=== PATIENT | female | born 1990 | race Two or more races ===

== ENCOUNTER 2024-08-22 11:11 | Emergency (ER) | payer MEDICAID ==
[~2024-08-22] VITALS: Ht 160 cm; Wt 45.5 kg
[2024-08-22 12:55] LABS: Urine Bacteria FEW /hpf (None Seen); Urine Blood 3+ /uL (Negative); Urine Clarity Clear (Clear); Urine Color Yellow (Yellow); Urine Mucus FEW (None Seen); Urine Protein, UAD Negative (Negative); Urine Specific Gravity 1.028 (1.001-1.035); Urine Squamous Epithelial Cell FEW /hpf (<5); Urine Urobilinogen Normal (Negative); Urine WBC 10 /HPF (0-5)
--- NOTE | 2024-08-22 13:30 | DVH ---
INDICATION: vaginalbleeding TECHNIQUE: Multiple real-time grayscale transabdominal and tv sonographic images along with color and duplex Doppler of the uterus and ovaries were obtained. COMPARISON: None FINDINGS: The uterus measures 13 x 7x7cm cm. 2cm fribroid. The right ovary measures 3 x 1 x 3 cm. The left ovary measures 3 x 2 x 4 cm. Subsequent color and duplex Doppler interrogation of the ovaries demonstrated symmetric vascular flow to both ovaries, though this does not exclude the possibility of torsion due to the dual blood suppl y. IMPRESSION: 1. 2cm fibroid. No pole or yolk sac seen. 2. retroverted uterus with irregular shaped GS with internal debris.
[2024-08-22] MEDS ORDERED: CEPH250C PO (13:42)
--- NOTE | 2024-08-22 13:43 | ED.PDOC ---
History of Present Illness HPI Comments 33-year-old female came to the ER stating that she is approximately eight weeks started to have spotting this morning. Along with spotting she has been having cramping. This is a 3rd . Other two pregnancies were normal delivery. She is comfortable. Vitals signs stable. Denies any other symptoms. Chief Complaint: Vaginal Bleed Time Seen by MD: 11:12 Primary Care Provider: UNKNOWN Reviewed Notes: Nurses Notes, Medications, Allergies Allergies: Coded Allergies: NO KNOWN ALLERGIES (Unverified , 08/22/24) Information Source: Patient Mode of Arrival: Ambulatory Severity: Moderate Timing: Hours Duration: Since onset Past Medical History PAST MEDICAL HISTORY: Denies Surgical History: Denies all surgeries UROGYNECOLOGY PHYSICIAN History: No Pertinent UROGYNECOLOGY PHYSICIAN History Social History Smoker: Non-Smoker Alcohol: Denies ETOH Use Drugs: Denies Drug Use Constitutional: denies: chills, diaphoresis, fatigue, fever, malaise, sweats, weakness, others EENTM: denies: blurred vision, double vision, ear bleeding, ear discharge, ear drainage, ear pain, ear ringing, eye pain, eye redness, hearing loss, mouth pain, mouth swelling, nasal discharge, nose bleeding, nose congestion, nose pain, photophobia, tearing, throat pain, throat swelling, voice changes, others Respiratory: denies: cough, hemoptysis, orthopnea, SOB at rest, shortness of breath, SOB with excertion, stridor, wheezing, others Cardiovascular: denies: chest pain, dizzy spells, diaphoresis, Dyspnea on exertion, edema, irregular heart beat, left arm pain, lightheadedness, palpitations, PND, syncope, others Gastrointestinal: denies: abdomen distended, abdominal pain, blood streaked bowels, constipated, diarrhea, dysphagia, difficulty swallowing, hematemesis, melena, nausea, poor appetite, poor fluid intake, rectal bleeding, rectal pain, vomiting, others Genitourinary: reports: abnormal vagina bleeding; denies: burning, dyspareunia, dysuria, flank pain, frequency, hematuria, incontinence, pain, , vagina discharge, urgency, others Neurological: denies: dizziness, fainting, headache, left sided numbness, left sided weakness, numbness, paresthesia, pre-existing deficit, right sided numbness, right sided weakness, seizure, speech problems, tingling, tremors, weakness, others Musculoskeletal: denies: back pain, gout, joint pain, joint swelling, muscle pain, muscle stiffness, neck pain, others Integumetry: denies: bruises, change in color, change in hair/nails, dryness, laceration, lesions, lumps, rash, wounds, others Allergic/Immunocompromised: denies: Difficulty Healing, Frequent Infections, Hives, Itching, others Hematologic/Lymphatic: denies: anemia, blood clots, easy bleeding, easy bruising, swollen glands, others Endocrine: denies: excessive hunger, excessive sweating, excessive thirst, excessive urination, flushing, intolerance to cold, intolerance to heat, unexplained weight gain, unexplained weight loss, others Psychiatric: denies: anxiety, bipolar disorder, depression, hopeless, panic disorder, schizophrenia, sleepless, suicidal, others Physical Exam General Appearance: Moderate Distress HEENT: Normal ENT Inspection, Pharynx Normal, TMs Normal Neck: Full Range of Motion, Non-Tender, Normal, Normal Inspection Respiratory: Chest Non-Tender, Lungs Clear, No Accessory Muscle Use, No Respiratory Distress, Normal Breath Sounds Cardiovascular: No Edema, No JVD, No Murmur, No Gallop, Normal Peripheral Pulses, Regular Rate/Rhythm Breast Exam: Deferred Gastrointestinal: No Organomegaly, Non Tender, No Pulsatile Mass, Normal Bowel Sounds, Soft Genitalia: Deferred Pelvic: Deferred Rectal: Deferred Extremities: No calf tenderness, Normal capillary refill, Normal inspection, Normal range of motion, Non-tender, No pedal edema Musculoskeletal : Apperance: Normal 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 Was a procedure done?: No Differential Dx Considerations may include: Vaginal bleeding X-Ray, Labs, Meds, VS Vital Signs Date Time Temp Pulse Resp B/P (MAP) Pulse Ox O2 Delivery O2 Flow Rate FiO2 08/22/24 11:42 97.6 95 16 118/84 (95) 96 97.6 Lab Test 08/22/24 11:48 08/22/24 11:36 Range/Units Beta HCG, Quantitative 5969.6 H 1.5-4.2 mIU/mL Urine Color Yellow Yellow Urine Clarity Clear Clear Urine pH 6.0 5.0-9.0 Urine Specific [place] 1.028 1.001-1.035 Urine Protein Negative Negative Urine Ketones Negative Negative Urine Blood 3+ H Negative /uL Urine Nitrite Negative Negative Urine Bilirubin Negative Negative Urine Urobilinogen Normal Negative mg/dL Urine Leukocyte Esterase Trace Negative /uL Urine RBC 11 0 - 4 /hpf Urine Microscopic WBC 10 H 0-5 /HPF Urine Squamous Epithelial Cells Few <5 /hpf Urine Bacteria Few H None Seen /hpf Urine Mucus Few None Seen Urine Glucose Normal Normal mg/dL Patient alert. Complaining of vaginal spotting. Vitals stable. Answering questions. Urinalysis shows UTI. Beta quant appropriate. Ultrasound does not show a sac. Possible early. Unknown. Explained to the family that she will need to have ultrasound in a week. Need to follow with the labs. Was told to follow up with her OBGYN. Was told to follow up with her primary care physician. Was told to come back if there is any problem. Time of 1ST Reevaluation: 13:40 Reevaluation 1ST: Improved Patient Education/Counseling: Diagnosis, Treatment, Prognosis, Need For Follow Up Family Education/Counseling: Need For Follow Up SEPSIS Sepsis Screen Date sepsis recognized/suspect: Aug 22, 2024 Time Sepsis recognized/suspect: 1130 Recent Procedure: No On Antibiotic Therapy: No Respiratory Rate >20: No Heart Rate >90: Yes Temp<36 C (96.8 F) or >38.3 C: No SBP <90 or MAP <65 mmHG: No New Acute Mental Status Change: No Is the patient on CPAP, BIPAP,: No Physician Orders Ob Ultrasound Comp Less 14wks (08/22/24 11:39) Ob Trans Vaginal Us (08/22/24 ) Vital Signs Date Time Temp Pulse Resp B/P (MAP) Pulse Ox O2 Delivery O2 Flow Rate FiO2 08/22/24 11:42 97.6 95 16 118/84 (95) 96 97.6 Departure 1 Departure Time of Disposition: 13:41 Impression: Primary Impression: Vaginal bleeding during Additional Impression: UTI (urinary tract infection) Qualified Codes: N30.00 - Acute cystitis without hematuria Disposition: 01 HOME / SELF CARE / HOMELESS Condition: Good e-Prescriptions Cephalexin (KEFLEX CAPSULE) 250 Mg Cp 250 MG PO QID for 5 Days, #20 BOTTLE Prov: RODDY TA MD 08/22/24 Discharged With: Self Critical Care Note Critical Care Time?: No Stability Stability form required: No Heart Score Heart Score: Heart Score Response (Comments) Value History N/A 0 EKG N/A 0 Age N/A 0 Risk Factors N/A 0 Troponin N/A 0 Total 0 RODDY TA MD Aug 22, 2024 13:43
[2024-08-22 14:19] VITALS: BP 119/74; PULSE 79; RESP 16; TEMP 98.5; O2SAT 99
== END 2024-08-22 14:43 | disposition home or self-care (01) ==
LOC: ER 11:11
DX: O20.0 Threatened abortion (principal); O23.41 Unspecified infection of urinary tract in pregnancy, first trimester; N39.0 Urinary tract infection, site not specified; O20.9 Hemorrhage in early pregnancy, unspecified; O26.851 Spotting complicating pregnancy, first trimester; Z3A.08 8 weeks gestation of pregnancy
CPT/HCPCS: 36415; 76801; 76817; 81001; 84702; A4565

== ENCOUNTER 2024-08-24 23:13 | Emergency (ER) | payer MEDICAID ==
[~2024-08-24] VITALS: Ht 157.5 cm; Wt 40.9 kg
[~2024-08-24 23:13] MED LIST: CEPH250C PO
[2024-08-24 23:39] LABS: Basophils # (auto) 0.1 10 ^3/uL (0-0.2); Eosinophils # (auto) 0.1 10 ^3/uL (0-0.8); Eosinophils % (auto) 0.9 % (0.0-7.0); Hematocrit 38.2 % (36.0-46.0); Hemoglobin 13.3 g/dL (12.2-16.2); Lymphocytes # (auto) 2.4 10 ^3/uL (0.4-5.4); Lymphocytes % (auto) 27.2 % (10.0-50.0); Mean Corpuscular Volume 88.8 fL (80.0-100.0); Monocytes # (auto) 0.7 10 ^3/uL (0-1.3); Monocytes % (auto) 7.4 % (0.0-12.0); Neutrophils # (auto) 5.7 10 ^3/uL (1.6-8.6); Neutrophils % (auto) 63.5 % (37.0-80.0); Nucleated Red Blood Cells % 0.1 %; Platelet Count (auto) 236 10^3/uL (140-450); Red Cell Distribution Width 13.2 % (11.8-14.3); White Blood Cell 8.9 10^3/uL (4.4-10.8)
[2024-08-24 23:48] LABS: Chloride 105 mmol/L (98-107); Sodium 141 mmol/L (136-145)
--- NOTE | 2024-08-24 23:48 | ED.PDOC ---
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 Patient is a . Patient was seen here 2 days ago for the same complaint, ultrasound showed the following: IMPRESSION: 1. 2cm fibroid. No pole or yolk sac seen. 2. retroverted uterus with irregular shaped GS with internal debris. Serum quant hCG was in the 5000 range. Patient was diagnosed with urinary tract infection, and discharged on Keflex. Patient states that today just prior to arrival she began having severe bleeding and passed a large clot. Patient produced a photo showing the clot, which to me appeared to be products of conception. Patient now reports lower abdominal cramping 09/05, without fever, nausea, vomiting, diarrhea or dysuria. Chief Complaint: Vaginal Bleed Time Seen by MD: 23:47 Reviewed Notes: Nurses Notes Allergies: Coded Allergies: NO KNOWN ALLERGIES (Unverified , 08/22/24) Home Meds Active Scripts Ibuprofen Micronized (Ibuprofen) 600 Mg Tab, 600 MG PO Q6HP PRN, #30 TAB Prov:JOSEFINA LOPEZ MD 08/25/24 Acetaminophen (Tylenol Extra Strength) 500 Mg Tab, 1000 MG PO Q6HP PRN, #30 TAB Prov:JOSEFINA LOPEZ MD 08/25/24 Cephalexin (KEFLEX CAPSULE) 250 Mg Cp, 250 MG PO QID for 5 Days, #20 BOTTLE Prov:RODDY TA MD 08/22/24 Information Source: Patient Mode of Arrival: Wheelchair Timing: Days Severity: Moderate Vaginal Discharge: None Vaginal Lesions: None Bleeding Quality: Dark, Clotted, Products of Conception Onset Of Mass/Bleeding: Spontaneous Sexual Activity: History of: Current Associated Signs and Symptoms: Vaginal Bleeding, Abdominal Pain, Cramping, Sharp Past Medical History Past Medical History (Other): Current Approximate 8 week Surgical History: Denies all surgeries 3 Para 2 Family History Family History: Reviewed,noncontributory to illness Social History Smoker: Non-Smoker Alcohol: Denies ETOH Use Drugs: Denies Drug Use Lives In: Home Constitutional: denies: chills, diaphoresis, fatigue, fever, malaise, sweats, weakness, others EENTM: denies: blurred vision, double vision, ear bleeding, ear discharge, ear drainage, ear pain, ear ringing, eye pain, eye redness, hearing loss, mouth pain, mouth swelling, nasal discharge, nose bleeding, nose congestion, nose pain, photophobia, tearing, throat pain, throat swelling, voice changes, others Respiratory: denies: cough, hemoptysis, orthopnea, SOB at rest, shortness of breath, SOB with excertion, stridor, wheezing, others Cardiovascular: denies: chest pain, dizzy spells, diaphoresis, Dyspnea on exertion, edema, irregular heart beat, left arm pain, lightheadedness, palpitations, PND, syncope, others Gastrointestinal: reports: abdominal pain; denies: abdomen distended, blood streaked bowels, constipated, diarrhea, dysphagia, difficulty swallowing, hematemesis, melena, nausea, poor appetite, poor fluid intake, rectal bleeding, rectal pain, vomiting, others Genitourinary: reports: abnormal vagina bleeding; denies: burning, dyspareunia, dysuria, flank pain, frequency, hematuria, incontinence, pain, , vagina discharge, urgency, others Neurological: denies: dizziness, fainting, headache, left sided numbness, left sided weakness, numbness, paresthesia, pre-existing deficit, right sided numbness, right sided weakness, seizure, speech problems, tingling, tremors, weakness, others Musculoskeletal: denies: back pain, gout, joint pain, joint swelling, muscle pain, muscle stiffness, neck pain, others Integumetry: denies: bruises, change in color, change in hair/nails, dryness, laceration, lesions, lumps, rash, wounds, others Allergic/Immunocompromised: denies: Difficulty Healing, Frequent Infections, Hives, Itching, others Hematologic/Lymphatic: denies: anemia, blood clots, easy bleeding, easy bruising, swollen glands, others Endocrine: denies: excessive hunger, excessive sweating, excessive thirst, excessive urination, flushing, intolerance to cold, intolerance to heat, unexplained weight gain, unexplained weight loss, others Psychiatric: denies: anxiety, bipolar disorder, depression, hopeless, panic disorder, schizophrenia, sleepless, suicidal, others Physical Exam General Appearance: Mild Distress HEENT: Other (Pupils and face symmetric. Moist mucous membranes.) Neck: Full Range of Motion, Normal Inspection Respiratory: Lungs Clear, No Accessory Muscle Use, No Respiratory Distress, Normal Breath Sounds Cardiovascular: No Edema, No JVD, Regular Rate/Rhythm Breast Exam: Deferred Gastrointestinal: Soft, Suprapubic, Tenderness Genitalia: Deferred Pelvic: Deferred Rectal: Deferred Extremities: Normal inspection, Normal range of motion, Non-tender, No pedal edema Neurologic: Alert (Oriented x4), Normal Affect, Other (Anxious and tearful. Ambulatory.) Cerebellar Function: NOT DONE Reflexes: NOT DONE Skin: Dry, Normal Color, Warm Lymphatic: NOT DONE Was a procedure done? 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) Vaginal Bleeding: - Complete, - Incomplete, - Inevitable, - Missed, - Threatened, Blood Loss Anemia, UTI X-Ray, Labs, Meds, VS Vital Signs Date Time Temp Pulse Resp B/P (MAP) Pulse Ox O2 Delivery O2 Flow Rate FiO2 08/25/24 02:37 98.2 84 14 106/75 (85) 97 98.2 08/25/24 01:30 98.3 79 20 105/65 (78) 96 98.3 08/25/24 01:30 79 20 96 Room Air 08/24/24 23:31 98.5 101 61 114/70 (85) 99 98.5 Lab Test 08/24/24 23:25 08/24/24 00:00 Range/Units White Blood Count 8.9 4.4-10.8 10^3/uL Red Blood Count 4.30 4.0-5.20 10^6/uL Hemoglobin 13.3 12.2-16.2 g/dL Hematocrit 38.2 36.0-46.0 % Mean Corpuscular Volume 88.8 80.0-100.0 fL Mean Corpuscular Hemoglobin 31.0 28.0-32.0 pg Mean Corpuscular Hemoglobin Concent 35.0 32.0-36.0 g/dL Red Cell Distribution Width 13.2 11.8-14.3 % Platelet Count 236 140-450 10^3/uL Mean Platelet Volume 8.4 6.9-10.8 fL Neutrophils (%) (Auto) 63.5 37.0-80.0 % Lymphocytes (%) (Auto) 27.2 10.0-50.0 % Monocytes (%) (Auto) 7.4 0.0-12.0 % Eosinophils (%) (Auto) 0.9 0.0-7.0 % Basophils (%) (Auto) 1.0 0.0-2.0 % Neutrophils # (Auto) 5.7 1.6-8.6 10 ^3/uL Lymphocytes # (Auto) 2.4 0.4-5.4 10 ^3/uL Monocytes # (Auto) 0.7 0-1.3 10 ^3/uL Eosinophils # (Auto) 0.1 0-0.8 10 ^3/uL Basophils # (Auto) 0.1 0-0.2 10 ^3/uL Nucleated Red Blood Cells 0.1 % Prothrombin Time 10.5 9.3-11.8 sec Prothrombin Time INR 0.99 0.9-1.15 Activated Partial Thromboplast Time 29.9 24.5-34.5 SEC Sodium Level 141 136-145 mmol/L Potassium Level 3.4 L 3.5-5.1 mmol/L Chloride Level 105 98-107 mmol/L Carbon Dioxide Level 24 20-31 mmol/L Anion Gap 12 5-15 Blood Urea Nitrogen 11 9-23 mg/dL Creatinine 0.76 0.550-1.02 mg/dL Glomerular Filtration Rate Calc 106 >90 mL/min BUN/Creatinine Ratio 14.5 10.0-20.0 Serum Glucose 111 H 74-106 mg/dL Calcium Level 9.6 8.7-10.4 mg/dL Beta HCG, Quantitative 2480.8 H 1.5-4.2 mIU/mL Urine Color Light-red Yellow Urine Clarity Clear Clear Urine pH 6.5 5.0-9.0 Urine Specific [place] 1.003 1.001-1.035 Urine Protein 1+ H Negative Urine Ketones Negative Negative Urine Blood 3+ H Negative /uL Urine Nitrite Negative Negative Urine Bilirubin Negative Negative Urine Urobilinogen Normal Negative mg/dL Urine Leukocyte Esterase Trace Negative /uL Urine RBC 45 0 - 4 /hpf Urine Microscopic WBC 2 0-5 /HPF Urine Squamous Epithelial Cells Few <5 /hpf Urine Bacteria Few H None Seen /hpf Urine Glucose Normal Normal mg/dL Current Medications Medications (Trade) Dose Ordered Sig/Mariana Route Start Time Stop Time Status Last Admin Sodium Chloride 1,000 ml @ 1,000 mls/hr Q1H ONCE IV 08/25/24 01:00 08/25/24 01:59 DC 08/25/24 02:47 Acetaminophen (Tylenol Tablet Or Capsule) 1,000 mg ONCE ONCE PO 08/25/24 01:00 08/25/24 01:11 DC 08/25/24 02:39 Potassium Bicarbonate (Klor-Con/Ef) 50 meq ONCE ONCE PO 08/25/24 01:00 08/25/24 01:11 DC 08/25/24 02:39 PROCEDURE(s): OB4US - OB ULTRASOUND COMP LESS 14WKS REASON: 8 wk preg vag bleed ORDER NUMBER(s): [id number], ACCESSION NUMBER(s): [id number] INDICATION: 8 wk preg vag bleed TECHNIQUE: Multiple real-time grayscale transabdominal sonographic images along with color and duplex Doppler of the uterus and ovaries were obtained. COMPARISON: US OB ULTRASOUND COMP LESS 14WKS on DOS: 08/22/24 FINDINGS: The uterus retroverted, measuring 11.1 x 6.5 x 5.4 cm. Solid-appearing heterogeneous echotexture uterine body mass measures 1.8 x 1.5 x 1.3 cm, consistent with a uterine fibroid. The endometrial stripe is thickened and heterogeneous in its echotexture, measuring 2.3 cm. No identifiable intrauterine gestation. No evidence of pelvic cul-de-sac free fluid. Right ovary measures 2.9 x 2.3 x 1.7 cm with normal Doppler color flow. Left ovary measures 3.3 x 3.1 x 1.4 cm with normal Doppler color flow. IMPRESSION: 1. Thickened heterogeneous endometrial echo complex without identifiable intrauterine gestation. 2. Uterine body fibroid. X-Ray, Labs, Meds, VS Comment 33-year-old female G3, P2 with current approximate 8 week brought in by family for vaginal bleeding Vitals remarkable for heart rate 101, respiratory rate 21 Exam remarkable for mild distress and suprapubic tenderness to palpation Rhythm strip independently interpreted by me: Sinus tach, rate 101, no ectopy. OB ultrasound CBC and coag panel unremarkable, basic metabolic panel remarkable for potassium 3.4, UA abnormal consistent with a contaminated specimen, serum quantitative hCG 2480.8 Patient treated with the following in the ED: L 0.9 normal saline IV bolus, Tylenol 1 g p.o., effervescent potassium 50 mEq p.o. On re-evaluation, patient states symptoms have improved. Vitals are stable. Patient states bleeding has subsided. Hospitalization was considered, however patient had rapid improvement of symptoms with treatment in the ED, and I no longer feel hospitalization is necessary. Patient now appears stable for discha rge with close outpatient follow-up with OBGYN. Patient will be referred to Dr. Cho. Rx Tylenol, ibuprofen Time of 1ST Reevaluation: 23:44 Reevaluation 1ST: Unchanged Patient Education/Counseling: Diagnosis, Treatment Family Education/Counseling: No Family Present Departure 1 Departure Time of Disposition: 03:22 Impression: Primary Impression: Miscarriage Disposition: 01 HOME / SELF CARE / HOMELESS Condition: Stable Referrals: ANNMARIE CHO DO Additional Instructions: Your blood tests were unremarkable. Your ultrasound shows you have had a miscarriage. I have prescribed pain medication. Follow-up with your OBGYN in 1-2 days for repeat blood testing and repeat ultrasound to ensure completion of the miscarriage. Alternatively, follow-up directly with Dr. Cho. [place] [id number] Ph: [phone] DIAGNOSTIC IMAGING Diagnostic Imaging Report : [id number] Signed PATIENT: RACIEL RAMIREZ ACCT: [id number] UNIT: [id number] : 1990 LOC: ER ROOM / BED: / AGE / SEX: 33 / F ADM STATUS: REG ER SERVICE [id number] ORDERING PHYSICIAN: JOSEFINA LOPEZ MD PROCEDURE(s): OB4US - OB ULTRASOUND COMP LESS 14WKS REASON: 8 wk preg vag bleed ORDER NUMBER(s): [id number], ACCESSION NUMBER(s): [id number] INDICATION: 8 wk preg vag bleed TECHNIQUE: Multiple real-time grayscale transabdominal sonographic images along with color and duplex Doppler of the uterus and ovaries were obtained. COMPARISON: US OB ULTRASOUND COMP LESS 14WKS on DOS: 08/22/24 FINDINGS: The uterus retroverted, measuring 11.1 x 6.5 x 5.4 cm. Solid-appearing heterogeneous echotexture uterine body mass measures 1.8 x 1.5 x 1.3 cm, consistent with a uterine fibroid. The endometrial stripe is thickened and heterogeneous in its echotexture, measuring 2.3 cm. No identifiable intrauterine gestation. No evidence of pelvic cul-de-sac free fluid. Right ovary measures 2.9 x 2.3 x 1.7 cm with normal Doppler color flow. Left ovary measures 3.3 x 3.1 x 1.4 cm with normal Doppler color flow. IMPRESSION: 1. Thickened heterogeneous endometrial echo complex without identifiable intrauterine gestation. 2. Uterine body fibroid. e-Prescriptions Ibuprofen Micronized (Ibuprofen) 600 Mg Tab 600 MG PO Q6HP PRN, #30 TAB Prov: JOSEFINA LOPEZ MD 08/25/24 Acetaminophen (Tylenol Extra Strength) 500 Mg Tab 1000 MG PO Q6HP PRN, #30 TAB Prov: JOSEFINA LOPEZ MD 08/25/24 Discharged With: Spouse Critical Care Note Critical Care Time?: No Stability Stability form required: No Heart Score Heart Score: Heart Score Response (Comments) Value History N/A 0 EKG N/A 0 Age N/A 0 Risk Factors N/A 0 Troponin N/A 0 Total 0 I personally scribed for JOSEFINA LOPEZ MD ([email or web address]) on 08/24/24 at 23: 48. Electronically submitted by Zachary Garcia ([email or web address]). JOSEFINA LOPEZ MD Aug 24, 2024 23:48
[2024-08-24 23:49] LABS: Anion Gap 12 (5-15); Carbon Dioxide 24 mmol/L (20-31)
[2024-08-24 23:50] LABS: Calcium 9.6 mg/dL (8.7-10.4)
[2024-08-24 23:53] LABS: INR 0.99 (0.9-1.15); Partial Thromboplastin Time 29.9 SEC (24.5-34.5); Prothrombin Time 10.5 sec (9.3-11.8)
[2024-08-24 23:54] LABS: BUN/Creatinine Ratio 14.5 (10.0-20.0); Blood Urea Nitrogen 11 mg/dL (9-23)
[2024-08-24 23:55] LABS: Glucose 111 mg/dL (74-106); Potassium 3.4 mmol/L (3.5-5.1)
[2024-08-25 00:09] LABS: Urine Bacteria FEW /hpf (None Seen); Urine Blood 3+ /uL (Negative); Urine Clarity Clear (Clear); Urine Color Light-Red (Yellow); Urine Protein, UAD 1+ (Negative); Urine Specific Gravity 1.003 (1.001-1.035); Urine Squamous Epithelial Cell FEW /hpf (<5); Urine Urobilinogen Normal (Negative); Urine WBC 2 /HPF (0-5); Urine pH 6.5 (5.0-9.0)
--- NOTE | 2024-08-25 02:35 | DVH ---
INDICATION: 8 wk preg vag bleed TECHNIQUE: Multiple real-time grayscale transabdominal sonographic images along with color and duplex Doppler of the uterus and ovaries were obtained. COMPARISON: US OB ULTRASOUND COMP LESS 14WKS on DOS: 08/22/24 FINDINGS: The uterus retroverted, measuring 11.1 x 6.5 x 5.4 cm. Solid-appearing heterogeneous echote xture uterine body mass measures 1.8 x 1.5 x 1.3 cm, consistent with a uterine fibroid. The endometrial stripe is thickened and heterogeneous in its echotexture, measuring 2.3 cm. No identi fiable intrauterine gestation. No evidence of pelvic cul-de-sac free fluid. Right ovary measures 2.9 x 2.3 x 1.7 cm with normal Doppler color flow. Left ovary measures 3.3 x 3.1 x 1.4 cm with normal Doppler color flow. IMPRESSION: 1. Thickened heterogeneous endometrial echo complex without identifiable intrauterine gestation. 2. Uterine body fibroid.
[2024-08-25 02:37] VITALS: TEMP 98.2
[2024-08-25] MEDS: POTASSIUM EFFERVESENT TAB 25 MEQ PO ONE (02:39)
[2024-08-25] MEDS: ACETAMINOPHEN 500 MG TAB or CAP PO ONE (02:39)
[2024-08-25] MEDS: SODIUM CHLORIDE 0.9% 1,000 ML IV ONE (02:47)
[2024-08-25] MEDS ORDERED: ACET-1304 PO (03:24)
[2024-08-25] MEDS ORDERED: IBUP1TAB5 PO (03:24)
[2024-08-25 05:20] VITALS: BP 116/79; PULSE 80; RESP 16; O2SAT 97
== END 2024-08-25 05:22 | disposition home or self-care (01) ==
LOC: ER 23:13
DX: O03.9 Complete or unspecified spontaneous abortion without complication (principal); R10.2 Pelvic and perineal pain; Z87.898 Personal history of other specified conditions; Z79.899 Other long term (current) drug therapy
CPT/HCPCS: 36415; 76801; 76817; 80048; 81001; 84702; 85025; 85610; 85730; 96360; 99284; J7030